=== PATIENT | female | born 1985 | race American Indian/Alaskan Native ===

== ENCOUNTER 2017-08-04 14:02 | Emergency (ER) | payer SELFPAY ==
[2017-08-04 14:17] VITALS: BP 113/73
--- NOTE | 2017-08-04 15:06 | Emergency Department Report ---
Blank Doc - Documentation Documentation: Patient is a 32-year-old [place] female who is presenting with heavy vaginal bleeding. Patient's sensation of bleeding for 5 days total for the past 3 days been heavy to the point where she changes her pad at least once an hour. Patient states that she has some mild dizziness as well. Patient will be sent for ultrasound as a CBC will be ordered to rule out treatable anemia
[2017-08-04 15:17] LABS: Basophils # (Auto) 0.1 K/mm3 (0.0-0.1); Basophils % (Auto) 1.3 % (0.0-1.8); Eosinophils # (Auto) 0.3 K/mm3 (0.0-0.4); Eosinophils % (Auto) 4.4 % (0.0-4.3); Hematocrit 45.3 % (30.3-42.9); Lymphocytes # (Auto) 2.1 K/mm3 (1.2-5.4); Lymphocytes % (Auto) 27.9 % (13.4-35.0); Mean Corpuscular HGB Conc 33 % (30-34); Mean Corpuscular Hemoglobin 32 pg (28-32); Mean Corpuscular Volume 97 fl (79-97); Monocytes # (Auto) 0.7 K/mm3 (0.0-0.8); Monocytes % (Auto) 9.1 % (0.0-7.3); Platelet Count 131 K/mm3 (140-440); Red Blood Count 4.65 M/mm3 (3.65-5.03); Red Cell Distribution Width 14.1 % (13.2-15.2)
[2017-08-04 15:32] LABS: BUN/Creatinine Ratio 18; Blood Urea Nitrogen 9 mg/dL (7-17); Calcium 8.9 mg/dL (8.4-10.2); Hemolysis Index 8
[2017-08-04 15:52] LABS: Bilirubin,Urine NEG (Negative); Blood,Urine NEG (Negative); Color,Urine Yellow (Yellow); Mucus,Urine FEW /HPF; Protein,Urine <15 mg/dL mg/dL (Negative); Urobilinogen,Urine < 2.0 mg/dL (<2.0); WBC,Urine < 1.0 /HPF (0.0-6.0)
--- NOTE | 2017-08-04 17:43 | Emergency Department Report ---
HPI - General Chief Complaint: Vaginal Bleeding Time Seen by Provider: 08/04/17 14:59 - HPI HPI: This is a 32-year-old female with no prior medical history who presents to ED complaining of vaginal bleeding for the past 3 days. Patient states about last week she took a Plan B pill. Otherwise a last menstrual period was 07/19/2017. Patient states heavy flow of bleeding. She states family history of fibroids but is unaware of her personal history. Patient states about last year she has similar symptoms and was put on Depo-Provera for 10 days with septal bleeding. She denies fever assess shows sinus nausea vomiting/dizziness or headaches. ED Past Medical Hx - Past Medical History Previous Medical History?: No Hx Asthma: Yes - Surgical History Past Surgical History?: No - Social History Smoking Status: Current Every Day Smoker Substance Use Type: Alcohol - Medications Home Medications: Home Medications Medication Instructions Recorded Confirmed Last Taken Type Norgestimate-Ethinyl Estradiol 1 each PO DAILY #28 tablet 08/04/17 Unknown Rx [Sprintec 28 Day Tablet] ED Review of Systems ROS: Stated complaint: BLEEDING Other details as noted in HPI Constitutional: denies: chills, fever Eyes: denies: eye pain, eye discharge, vision change ENT: denies: ear pain, throat pain Respiratory: denies: cough, shortness of breath, wheezing Cardiovascular: denies: chest pain, palpitations Endocrine: no symptoms reported Gastrointestinal: denies: abdominal pain, nausea, diarrhea Genitourinary: abnormal menses. denies: urgency, dysuria, frequency, hematuria , discharge Musculoskeletal: denies: back pain, joint swelling, arthralgia Skin: denies: rash, lesions Neurological: denies: headache, weakness, paresthesias Psychiatric: denies: anxiety, depression Hematological/Lymphatic: denies: easy bleeding, easy bruising Physical Exam - Physical Exam Vital Signs: Vital Signs 08/04/17 14:12 Temperature 98.8 F Pulse Rate 82 Respiratory 16 Rate Blood Pressure 113/73 O2 Sat by Pulse 100 Oximetry Physical Exam: GENERAL: Alert and oriented x3, no apparent distress, Normal Gait, atraumatic. HEAD: Head is normocephalic and a-traumatic. EYES: Extra ocular muscles are intact. Pupils are equal, round, and reactive to light and accommodation. LUNGS: Symetrical with respiration, No wheezing, no rales or crackles, CTAB. HEART: S1, S2 present, regular rate and rhythm without murmur, no rubs, no gallops. Non tender to palpation ABDOMEN: No organomegaly was noted,Positive bowel sounds, soft, and non- distended. . Nontender to palpation on all Quadrants, NO CVA tenderness. BACK: Full range of motion, no spinal tenderness, nontender to palpation. EXTREMITIES/MUSCULOSKELETAL: No cyanosis, clubbing, rash, lesions or edema. Full ROM bilaterally. NEUROLOGIC: The patient is cooperative with no focal neurologic deficits. Cranial nerves II through XII are grossly intact. Normal speech. Normal sensation in bilateral upper and lower extremities, No loss of sensation, . SKIN: Warm and dry, No lesions, No ulceration or induration present. ED Course Vital Signs 08/04/17 14:12 Temperature 98.8 F Pulse Rate 82 Respiratory 16 Rate Blood Pressure 113/73 O2 Sat by Pulse 100 Oximetry ED Medical Decision Making - Lab Data Result diagrams: 08/04/17 15:09 08/04/17 15:09 - Radiology Data Radiology results: report reviewed, image reviewed FINAL REPORT EXAM: US PELVIC COMPLETE HISTORY: heavy vaginal bleeding for 5 days. Back pain and bilateral pelvic pain.. LMP 07/19/2017 dysfunctional uterine bleeding. TECHNIQUE: Ultrasound of the pelvis using transabdominal and transvaginal imaging PRIORS: None. FINDINGS: Uterus: Uterus is elongated in size, retroflexed in position, and normal and homogeneous in echogenicity without focal fibroid formation. The uterus measures 8.6 x 4.7 x 5.0 cm in size. Endometrial stripe: Normal and uniform in thickness measuring 1.1 mm. No fluid in the endometrial canal is seen. Ovaries: Both ovaries appear normal in size and echogenicity with normal blood flow bilaterally. The right ovary measures 2.9 x 2.2 x 1.7 cm and the left ovary measures 2.9 x 1.8 x 1.7 cm in size. Other: There is no evidence for solid adnexal mass or free fluid in the cul-de-sac seen. IMPRESSION: Negative pelvic ultrasound. Endometrial stripe is normal at 1.1 mm. No fluid in the endometrial canal is seen. Transcribed By: [facility] Dictated By: JOSE DUDLEY MD Electronically Authenticated By: JOSE DUDLEY MD Signed Date/Time: 04/02/11 1855 - Medical Decision Making 32-year-old female presents with this uterine bleeding ED course: Ultrasound pending, CBC, BMP within normal limits. I discussed the patient sometimes Plan B pills can cause breakthrough bleeding. I discussed the follow up with her FISH[facility] . Ultrasound pending. Patient states she wants to leave and does not want to wait for ultrasound results. I discussed the patient at her results are not back yet and cannot now will be going on. Patient states she does not care if she does not want to wait for results. She states she will come back for a massively typical medications. I reviewed ultrasound constipation last ultrasound within normal limits see reported above Critical care attestation.: If time is entered above; I have spent that time in minutes in the direct care of this critically ill patient, excluding procedure time. ED Disposition Clinical Impression: Oligomenorrhea Qualifiers: Oligomenorrhea type: unspecified type Qualified Code(s): N91.5 - Oligomenorrhea , unspecified Menorrhagia Qualifiers: Menorrahagia type: with irregular cycle Qualified Code(s): N92.1 - Excessive and frequent menstruation with irregular cycle Disposition: DC-01 TO HOME OR SELFCARE Is pt being admited?: No Does the pt Need Aspirin: No Condition: Stable Instructions: Dysfunctional Uterine Bleeding (ED), Menorrhagia (ED) Additional Instructions: Make sure to follow up with the primary care physician as discussed. Take all your medications as you've been prescribed. If you have any worsening symptoms or develop new symptoms please return to ED immediately. Prescriptions: Norgestimate-Ethinyl Estradiol [Sprintec 28 Day Tablet] 1 each PO DAILY #28 tablet Referrals: KARON SCOTT MD [Primary Care Provider] - 3-5 Days JOES L SHEPARD MD [Referring] - 3-5 Days [facility] [Outside] - 3-5 Days Forms: Work/School Release Form(ED) Time of Disposition: 18:45
[2017-08-04] MEDS ORDERED: MOTRIN PO ONE (18:31)
--- NOTE | 2017-08-04 19:00 | Ultrasound Report ---
FINAL REPORT EXAM: US PELVIC COMPLETE HISTORY: heavy vaginal bleeding for 5 days. Back pain and bilateral pelvic pain.. LMP 07/19/2017 dysfunctional uterine bleeding. TECHNIQUE: Ultrasound of the pelvis using transabdominal and transvaginal imaging PRIORS: None. FINDINGS: Uterus: Uterus is elongated in size, retroflexed in position, and normal and homogeneous in echogenicity without focal fibroid formation. The uterus measures 8.6 x 4.7 x 5.0 cm in size. Endometrial stripe: Normal and uniform in thickness measuring 1.1 mm. No fluid in the endometrial canal is seen. Ovaries: Both ovaries appear normal in size and echogenicity with normal blood flow bilaterally. The right ovary measures 2.9 x 2.2 x 1.7 cm and the left ovary measures 2.9 x 1.8 x 1.7 cm in size. Other: There is no evidence for solid adnexal mass or free fluid in the cul-de-sac seen. IMPRESSION: Negative pelvic ultrasound. Endometrial stripe is normal at 1.1 mm. No fluid in the endometrial canal is seen.
--- NOTE | 2017-08-04 19:04 | Ultrasound Report ---
FINAL REPORT EXAM: US TRANSVAGINAL HISTORY: heavy vaginal bleeding for 5 days. Back pain and bilateral pelvic pain. LMP 07/19/2017 dysfunctional uterine bleeding. TECHNIQUE: Ultrasound of the pelvis using transabdominal and transvaginal imaging PRIORS: None. FINDINGS: Uterus: Uterus is elongated in size, retroflexed in position, and normal and homogeneous in echogenicity without focal fibroid formation. The uterus measures 8.6 x 4.7 x 5.0 cm in size. Endometrial stripe: Normal and uniform in thickness measuring 1.1 mm. No fluid in the endometrial canal is seen. Ovaries: Both ovaries appear normal in size and echogenicity with normal blood flow bilaterally. The right ovary measures 2.9 x 2.2 x 1.7 cm and the left ovary measures 2.9 x 1.8 x 1.7 cm in size. Other: There is no evidence for solid adnexal mass or free fluid in the cul-de-sac seen. IMPRESSION: Negative pelvic ultrasound. Endometrial stripe is normal at 1.1 mm. No fluid in the endometrial canal is seen.
== END 2017-08-04 18:49 | disposition home or self-care (01) ==
LOC: ED 14:02
DX: N91.5 Oligomenorrhea, unspecified (principal); N92.0 Excessive and frequent menstruation with regular cycle; F17.200 Nicotine dependence, unspecified, uncomplicated
CPT/HCPCS: 36415; 76830; 76856; 80048; 81001; 84703; 85025; 99284